=== PATIENT | female | born 1990 | race African-American/Black ===

== ENCOUNTER 2020-12-02 11:23 | Emergency (ER) | payer OTHER ==
[~2020-12-02] VITALS: Ht 170.2 cm; Wt 66.0 kg
[2020-12-02] MEDS ORDERED: IBUP-2029 MT (12:12)
[2020-12-02] MEDS ORDERED: P50 MT (12:12)
[2020-12-02] MEDS ORDERED: KETOROLAC 30MG/ML VIAL IM ONE (12:15)
[2020-12-02 12:26] VITALS: BP 128/93
== END 2020-12-02 13:35 | disposition home or self-care (01) ==
LOC: ER 11:23
DX: M06.89 Other specified rheumatoid arthritis, multiple sites (principal); R03.0 Elevated blood-pressure reading, without diagnosis of hypertension
CPT/HCPCS: 81025; 96372; 99283; J1885

== ENCOUNTER 2021-01-05 12:48 | Emergency (ER) | payer OTHER ==
[~2021-01-05] VITALS: Ht 170.2 cm; Wt 68.0 kg
[~2021-01-05 12:48] MED LIST: IBUP-2029 MT; P50 MT
[2021-01-05] MEDS ORDERED: KETOROLAC 30MG/ML VIAL IM ONE (13:30)
[2021-01-05] MEDS ORDERED: PRED10TA MT ×3 (13:33→13:48)
[2021-01-05] MEDS ORDERED: HYDR-4001 MT ×3 (13:33→13:48)
[2021-01-05 13:44] VITALS: BP 115/72
== END 2021-01-05 13:47 | disposition home or self-care (01) ==
LOC: ER 12:53
DX: M06.9 Rheumatoid arthritis, unspecified (principal); Z79.899 Other long term (current) drug therapy
CPT/HCPCS: 81025; 96372; 99283; J1885

== ENCOUNTER 2021-04-10 08:54 | Emergency (ER) | payer MEDICAID, OTHER ==
[~2021-04-10] VITALS: Ht 170.2 cm; Wt 66.0 kg
[~2021-04-10 08:54] MED LIST changes: +HYDR-4001 MT; +PRED10TA MT
[2021-04-10] MEDS ORDERED: KETOROLAC 60MG/2ML VIAL IM ONE (09:30)
[2021-04-10] MEDS ORDERED: T3 PO (10:03)
[2021-04-10 10:12] VITALS: BP 115/71
== END 2021-04-10 10:14 | disposition home or self-care (01) ==
LOC: ER 08:54
DX: M06.842 Other specified rheumatoid arthritis, left hand (principal)
CPT/HCPCS: 81025; 96372; 99283; J1885; Z7610

== ENCOUNTER 2021-04-12 17:36 | Emergency (ER) | payer OTHER ==
[~2021-04-12] VITALS: Ht 175.3 cm; Wt 77.0 kg
[~2021-04-12 17:36] MED LIST changes: +T3 PO
[2021-04-12 17:39] VITALS: BP 106/80
== END 2021-04-12 18:58 | disposition left against medical advice (07) ==
LOC: ER 17:36
DX: Z53.21 Procedure and treatment not carried out due to patient leaving prior to being seen by health care provider (principal)

== ENCOUNTER 2021-07-13 07:50 | Emergency (ER) | payer MEDICAID, OTHER ==
[~2021-07-13] VITALS: Ht 170.2 cm; Wt 68.0 kg
[2021-07-13] MEDS ORDERED: KETOROLAC 60MG/2ML VIAL IM ONE (08:30)
[2021-07-13] MEDS ORDERED: IBUP-2029 MT (09:04)
[2021-07-13] MEDS ORDERED: P20 MT (09:04)
[2021-07-13 09:27] VITALS: BP 138/61
== END 2021-07-13 09:28 | disposition home or self-care (01) ==
LOC: ER 08:23
DX: M06.9 Rheumatoid arthritis, unspecified (principal); S63.592A Other specified sprain of left wrist, initial encounter; X58.XXXA Exposure to other specified factors, initial encounter; Y93.89 Activity, other specified; Y92.89 Other specified places as the place of occurrence of the external cause; Y99.8 Other external cause status; Z79.899 Other long term (current) drug therapy
CPT/HCPCS: 29125; 73130; 81025; 96372; 99283; J1885

== ENCOUNTER 2021-08-08 11:21 | Emergency (ER) | payer MEDICAID, OTHER ==
[~2021-08-08] VITALS: Ht 170.2 cm; Wt 69.0 kg
[~2021-08-08 11:21] MED LIST changes: +P20 MT
[2021-08-08 12:13] VITALS: BP 112/80
[2021-08-08] MEDS ORDERED: IBUP-2029 MT (12:13)
[2021-08-08] MEDS ORDERED: P20 MT (12:13)
[2021-08-08] MEDS ORDERED: KETOROLAC 30MG/ML VIAL IM ONE (12:15)
== END 2021-08-08 13:53 | disposition home or self-care (01) ==
LOC: ER 11:21
DX: M06.9 Rheumatoid arthritis, unspecified (principal); Z79.899 Other long term (current) drug therapy
CPT/HCPCS: 73562; 81025; 96372; 99283; J1885

== ENCOUNTER 2021-09-18 12:00 | Emergency (ER) | payer MEDICAID ==
[~2021-09-18] VITALS: Ht 170.2 cm; Wt 68.0 kg
[2021-09-18 12:04] VITALS: BP 123/93
[2021-09-18] MEDS ORDERED: IBUP-2028 MT (12:29)
[2021-09-18] MEDS ORDERED: AMOX-424 MT (12:29)
[2021-09-18] MEDS ORDERED: P50 MT (12:29)
== END 2021-09-18 12:47 | disposition home or self-care (01) ==
LOC: ER 12:00
DX: K04.7 Periapical abscess without sinus (principal); M06.9 Rheumatoid arthritis, unspecified
CPT/HCPCS: 99283

== ENCOUNTER 2021-11-19 10:12 | Emergency (ER) | payer MEDICAID, OTHER ==
[~2021-11-19] VITALS: Ht 170.2 cm; Wt 66.0 kg
[~2021-11-19 10:12] MED LIST changes: +AMOX-424 MT; +IBUP-2028 MT
[2021-11-19 10:31] VITALS: BP 112/72
[2021-11-19] MEDS ORDERED: P20 MT (10:49)
[2021-11-19] MEDS ORDERED: AMOX-494 MT (10:49)
[2021-11-19] MEDS ORDERED: MELO-105 MT (10:49)
== END 2021-11-19 12:16 | disposition home or self-care (01) ==
LOC: ER 10:12
DX: M79.18 Myalgia, other site (principal); K08.89 Other specified disorders of teeth and supporting structures
CPT/HCPCS: 99283

== ENCOUNTER 2022-08-21 05:46 | Emergency (ER) | payer MEDICAID ==
[~2022-08-21] VITALS: Ht 170.2 cm; Wt 70.0 kg
[~2022-08-21 05:46] MED LIST changes: +AMOX-494 MT; +MELO-105 MT
[2022-08-21] MEDS ORDERED: NAPR-1176 PO (06:47)
[2022-08-21 06:55] VITALS: BP 141/100
[2022-08-21] MEDS ORDERED: KETOROLAC 30MG/ML VIAL IM ONE (07:00)
== END 2022-08-21 06:56 | disposition home or self-care (01) ==
LOC: ER 05:46
DX: M25.512 Pain in left shoulder (principal); Z79.899 Other long term (current) drug therapy; Z98.890 Other specified postprocedural states
CPT/HCPCS: 96372; 99283; J1885; Z7610

== ENCOUNTER 2022-09-21 08:15 | Emergency (ER) | payer MEDICAID ==
[~2022-09-21] VITALS: Ht 167.6 cm; Wt 80.0 kg
[~2022-09-21 08:15] MED LIST changes: +NAPR-1176 PO
[2022-09-21 08:27] VITALS: BP 134/80
[2022-09-21 09:22] LABS: BASOPHILS % 0.1 % (0.0-2.0); EOSINOPHILS % 0.1 % (0.0-5.0); HEMATOCRIT. 35.2 % (36.0-48.0); HEMOGLOBIN. 11.4 g/dL (12.0-16.0); LYMPHOCYTES % 11.2 % (20.0-50.0); MEAN CORPUSCULAR HEMOGLOBIN 24.7 pg (28.0-32.0); MEAN CORPUSCULAR VOLUME 76.4 fL (81.0-99.0); MEAN PLATELET VOLUME 8.5 fl (7.4-10.4); NEUTROPHILS % 79.6 % (40.0-76.0); PLATELET 253 x1000/uL (130-400); RED BLOOD CELL COUNT 4.61 mill/uL (4.2-5.4); RED CELL DISTRIBUTION WIDTH 16.2 % (11.6-14.6)
[2022-09-21 09:31] LABS: CHLORIDE 106 mEq/L (98-107)
[2022-09-21 10:01] LABS: HCG SCREEN NEGATIVE
[2022-09-21] MEDS ORDERED: ONDANSETRON 4MG ODT PO STA (10:59)
[2022-09-21] MEDS ORDERED: VISCOUS LIDOCAINE 2% 15 ML UDC PO STA (10:59)
[2022-09-21] MEDS ORDERED: MAGNESIUM/ALUMINUM HYDROXIDE/SIMETHICONE 30ML UDC PO STA (10:59)
[2022-09-21] MEDS ORDERED: FAMOTIDINE 20MG TABLET PO ONE (11:00)
[2022-09-21 12:56] LABS: CLARITY URINE TURBID (CLEAR); COLOR URINE DARK YELLOW (YELLOW); KETONES URINE 3+ (NEGATIVE); LEUKOCYTE ESTERASE URINE 1+ (NEGATIVE); NITRITE URINE NEGATIVE (NEGATIVE); OCCULT BLOOD URINE NEGATIVE (NEGATIVE); PROTEIN URINE 1+ (NEGATIVE); SPECIFIC GRAVITY URINE 1.035 (1.005-1.030)
[2022-09-21] MEDS ORDERED: MAG-55 MT (14:44)
[2022-09-21] MEDS ORDERED: P20 MT (14:44)
[2022-09-21] MEDS ORDERED: FAMO20TA8 MT (14:44)
[2022-09-21] MEDS ORDERED: ACET-2708 MT (14:44)
== END 2022-09-21 15:29 | disposition home or self-care (01) ==
LOC: ER 08:43
DX: K52.89 Other specified noninfective gastroenteritis and colitis (principal); R10.84 Generalized abdominal pain
CPT/HCPCS: 36415; 74176; 80053; 81003; 83690; 84703; 85025; 99284; Q0162

== ENCOUNTER 2022-10-22 10:41 | Emergency (ER) | payer MEDICAID ==
[~2022-10-22] VITALS: Ht 170.2 cm; Wt 70.0 kg
[~2022-10-22 10:41] MED LIST changes: +ACET-2708 MT; +FAMO20TA8 MT; +MAG-55 MT
[2022-10-22] MEDS ORDERED: KETOROLAC 60MG/2ML VIAL IM ONE (11:15)
[2022-10-22] MEDS ORDERED: P50 MT (11:18)
[2022-10-22] MEDS ORDERED: HYDR-4001 MT ×3 (11:18→12:08)
[2022-10-22 12:19] VITALS: BP 126/91
== END 2022-10-22 12:20 | disposition home or self-care (01) ==
LOC: ER 10:41
DX: M06.9 Rheumatoid arthritis, unspecified (principal); Z79.899 Other long term (current) drug therapy
CPT/HCPCS: 81025; 96372; 99283; J1885

== ENCOUNTER 2023-05-07 09:42 | Emergency (ER) | payer MEDICAID ==
[~2023-05-07] VITALS: Ht 170.2 cm; Wt 75.0 kg
[2023-05-07 10:08] VITALS: O2SAT 100
[2023-05-07] MEDS ORDERED: P50 MT (11:27)
[2023-05-07] MEDS ORDERED: MORPHINE SULFATE 10 MG/ML CPJ IM ONE (11:30)
[2023-05-07] MEDS ORDERED: NAPR-1176 MT (11:31)
[2023-05-07] MEDS ORDERED: HYDR-4001 MT (11:36)
[2023-05-07] MEDS ORDERED: MORPHINE SULFATE 10 MG/ML CPJ IM NR (12:00)
[2023-05-07 12:15] VITALS: BP 140/95; PULSE 82; RESP 16; TEMP 98
== END 2023-05-07 12:16 | disposition home or self-care (01) ==
LOC: ER 10:51
DX: M06.9 Rheumatoid arthritis, unspecified (principal)
CPT/HCPCS: 96372; 99283; J2270; Z7610

== ENCOUNTER 2023-06-11 11:59 | Emergency (ER) | payer MEDICAID ==
[~2023-06-11] VITALS: Ht 170.2 cm; Wt 68.0 kg
[2023-06-11 12:16] VITALS: BP 137/92; PULSE 87; RESP 20; TEMP 98.4; O2SAT 100
[2023-06-11] MEDS ORDERED: P50 MT (13:25)
[2023-06-11] MEDS ORDERED: MELO-105 MT (13:25)
== END 2023-06-11 14:17 | disposition home or self-care (01) ==
LOC: ER 13:37
DX: M79.10 Myalgia, unspecified site (principal); M06.9 Rheumatoid arthritis, unspecified; Z98.890 Other specified postprocedural states; Z79.899 Other long term (current) drug therapy
CPT/HCPCS: 99281; 99283

== ENCOUNTER 2023-11-15 14:58 | Emergency (ER) | payer MEDICAID ==
[~2023-11-15] VITALS: Ht 170.2 cm; Wt 75.0 kg
[2023-11-15 15:28] VITALS: TEMP 98; O2SAT 100
[2023-11-15] MEDS ORDERED: P20 MT (15:59)
[2023-11-15 16:20] VITALS: BP 133/82; PULSE 77; RESP 18
[2023-11-15] MEDS: KETOROLAC 30MG/ML VIAL IM ONE (16:20)
== END 2023-11-15 16:43 | disposition home or self-care (01) ==
LOC: ER 14:58
DX: M06.9 Rheumatoid arthritis, unspecified (principal); M79.10 Myalgia, unspecified site; Z79.899 Other long term (current) drug therapy
CPT/HCPCS: 96372; 99283; J1885; Z7610

== ENCOUNTER 2024-08-10 15:14 | Emergency (ER) | payer MEDICAID, OTHER ==
[~2024-08-10] VITALS: Ht 175.3 cm; Wt 73.0 kg
[2024-08-10 15:22] VITALS: BP 141/95; PULSE 112; RESP 14; TEMP 37.1; O2SAT 100; O2SAT 99
== END 2024-08-10 18:05 | disposition left against medical advice (07) ==
LOC: ER 15:14
DX: M06.9 Rheumatoid arthritis, unspecified (principal); Z79.52 Long term (current) use of systemic steroids
CPT/HCPCS: 81025; 99282

== ENCOUNTER 2024-10-04 11:56 | Emergency (ER) | payer MEDICAID, OTHER ==
[~2024-10-04] VITALS: Ht 170.2 cm; Wt 79.0 kg
[2024-10-04 11:58] VITALS: BP 144/100; TEMP 37.2; O2SAT 98
[2024-10-04 12:01] VITALS: PULSE 134; RESP 16; O2SAT 100
[2024-10-04] MEDS ORDERED: NAPROXEN 375MG TABLET PO ONE (13:15)
[2024-10-04] MEDS: ACETAMINOPHEN 325MG TABLET PO STA (13:20)
[2024-10-04] MEDS: NAPROXEN 375MG TABLET PO ONE (13:20)
[2024-10-04] MEDS ORDERED: TOPUD PO (15:07)
[2024-10-04] MEDS ORDERED: IBUP-2029 MT (15:07)
[2024-10-04] MEDS ORDERED: METH4TAB95 MT (15:08)
== END 2024-10-04 15:16 | disposition home or self-care (01) ==
LOC: ER 11:56
DX: M06.9 Rheumatoid arthritis, unspecified (principal); B34.9 Viral infection, unspecified; Z79.899 Other long term (current) drug therapy; Z20.822 Contact with and (suspected) exposure to COVID-19
CPT/HCPCS: 81025; 87426; 99283

== ENCOUNTER 2025-06-02 13:10 | Emergency (ER) | payer MEDICAID ==
[~2025-06-02] VITALS: Ht 170.2 cm; Wt 84.0 kg
[~2025-06-02 13:10] MED LIST changes: +IBUP-1455 MT; -IBUP-2029 MT; +METH4TAB95 MT; +TOPUD PO
[2025-06-02 13:12] VITALS: O2SAT 98
[2025-06-02] MEDS ORDERED: DEXAMETHASONE 10 MG/ML VIAL PO ONE (14:30)
[2025-06-02] MEDS ORDERED: PRED10TA PO (14:43)
[2025-06-02] MEDS ORDERED: IBUP-1455 PO (14:43)
[2025-06-02 15:24] VITALS: BP 140/82; PULSE 84; RESP 18; TEMP 37; O2SAT 98
== END 2025-06-02 15:24 | disposition home or self-care (01) ==
LOC: ER 13:10
DX: M06.30 Rheumatoid nodule, unspecified site (principal); Z79.52 Long term (current) use of systemic steroids; M79.10 Myalgia, unspecified site
CPT/HCPCS: 99283